=== PATIENT | female | born 1995 | race Caucasian/White ===

== ENCOUNTER 2017-06-17 11:32 | Emergency (ER) | payer OTHER ==
[~2017-06-17] VITALS: Ht 170.2 cm; Wt 77.1 kg
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
[~2017-06-17 11:32] MED LIST: AMOXICILLIN500 M1 PO; BACTRIM DS TABL1 TA1 PO; BACTRIM DS TABL1 TAB PO; CAPITAL AN12 MG/5 ML PO; DEPO-PROVER150 MG/ML INJ; KEFLEX500 M2 PO; LORTAB 5/500 TA1 TA2 PO; MACROBID100 M1 PO; MELATONIN3 MG PO; MOTRIN600 M1 PO; NO MEDICATIONS; PYRIDIUM PO; VOLTAREN75 MG PO
== END 2017-06-17 14:49 | disposition home or self-care (01) ==
LOC: SED 11:32
DX: S13.4XXA Sprain of ligaments of cervical spine, initial encounter (principal); S23.3XXA Sprain of ligaments of thoracic spine, initial encounter; S40.011A Contusion of right shoulder, initial encounter; I10 Essential (primary) hypertension; G43.909 Migraine, unspecified, not intractable, without status migrainosus; V49.40XA Driver injured in collision with unspecified motor vehicles in traffic accident, initial encounter; Y93.89 Activity, other specified; Y92.410 Unspecified street and highway as the place of occurrence of the external cause
CPT/HCPCS: 72040; 72072; 73030; 99284